=== PATIENT | male | born 1995 | race Caucasian/White ===

== ENCOUNTER 2017-12-28 13:54 | Emergency (ER) | payer OTHER ==
--- NOTE | 2017-12-28 13:57 | EDPHY ---
HPI/HX/ROS/PE/MDM Narrative: CHIEF COMPLAINT: "High on acid" HPI: The patient is a 22 y/o male arriving via EMS after people at [employer] found the patient lying in an aisle. When police arrived, the patient admitted to using LSD. He was initially trying to leave EMS, so they placed him in restraints and he has been cooperative since. While en route to the emergency department the patient was tachycardic at 112 and had a BGL of 144. EMS gave him 500mg IM Versed. On my exam, patient admits to using both LSD and marijuana prior to arrival. He states he feels much better. He denies any complaints. REVIEW OF SYSTEMS: Aside from elements discussed in the HPI, a comprehensive 10-point review of systems was reviewed and is negative. PMH: Anxiety SOCIAL HISTORY: Lives in [place], single, admits to polysubstance abuse PHYSICAL EXAM: General: Patient is alert, in no acute distress. ENT: Eyes are normal to inspection. ENT inspection normal. Pupils dilated but reactive bilaterally. Neck: Normal inspection. Full range of motion. Respiratory: No respiratory distress. Breath sounds normal bilaterally. Cardiovascular: Regular rate and rhythm. Strong peripheral pulses. Normal cap refill. Abdomen: The abdomen is nontender to palpation. There are no peritoneal signs. There are normal bowel sounds. Back: Normal to inspection. No tenderness to palpation. Skin: Normal color. No rash. Warm and dry. Extremities: Normal appearance. Full range of motion. Neuro: Normal motor function. Normal sensory function. ED Course: 1355: I met EMS upon arrival 1402: EKG was ordered and interpreted by myself. Please see [facility] system for official reading. 1425: Patient has been placed on a detainer by myself. 1642: Patient is feeling better and his girlfriend has arrived to the emergency department. Patient is safe to return home with his girlfriend. Return precautions provided. General Time Seen by Provider: 12/28/17 13:54 Initial Vital Signs: Initial Vital Signs Temperature (C) 36.2 C 12/28/17 14:03 Heart Rate 120 H 12/28/17 14:03 Respiratory Rate 18 12/28/17 14:03 Blood Pressure 137/83 H 12/28/17 14:03 O2 Sat (%) 97 12/28/17 14:03 O2 Delivery Mode Room Air Allergies/Adverse Reactions: No Known Allergies Allergy (Unverified 12/28/17 14:07) Home Medications: Medication Instructions Recorded Ativan 12/28/17 Departure - Departure Disposition: Home, Routine, Self-Care Clinical Impression: Polysubstance abuse Condition: Good Instructions: Polysubstance Abuse (ED) Additional Instructions: Please refrain from using LSD and marijuana. Return to the emergency department immediately for fever, vomiting, confusion, headache, abdominal pain or other worsening of condition. Followup with your primary care physician within 72 hours for reevaluation. Referrals: [facility],. [Clinic] - As per Instructions Report Scribed for: Doug Maria Report Scribed by: Mirian Capps Date of Report: 12/28/17 Time of Report: 13:56 Physician Review and Approval Statement: Portions of this note were transcribed by an ED scribe. I personally performed the history, physical exam, and medical decision making; and confirm the accuracy of the information in the transcribed note.
--- NOTE | 2017-12-28 14:08 | CPEKG ---
Heart Rate: 112 RR Interval: 536 P-R Interval: 156 QRSD Interval: 92 QT Interval: 324 QTC Interval: 443 P [place]: 73 QRS [place]: 81 T Wave [place]: 56 EKG Severity - BORDERLINE ECG - EKG Impression: SINUS TACHYCARDIA EKG Impression: PROBABLE LEFT ATRIAL ABNORMALITY Electronically Signed By: Wes Echols 30-Dec-2017 13:41:44
[2017-12-28 16:46] VITALS: BP 148/92
== END 2017-12-28 16:47 | disposition home or self-care (01) ==
DX: F19.10 Other psychoactive substance abuse, uncomplicated (principal)